=== PATIENT | male | born 1940 | race Caucasian/White ===

== ENCOUNTER 2022-11-07 07:49 | Inpatient (IN) | payer MEDICARE, OTHER ==
[~2022-11-07] VITALS: Ht 182.9 cm; Wt 100.9 kg
[~2022-11-07 07:49] MED LIST: AZELASTINE137 MCG/01; Amiodarone HCl200 MG PO; B-121000 MC7 PO; CARV25 PO; DICLOFENAC SOD100 GM TOP; ELIQUIS5 M2 PO; FENO160 PO; FURO40 PO; INSULANI SC; IPRATROPIUM BRO30 ML; JARDIANCE10 MG PO; LACT10SY PO; LEVSOD75 PO; Lisinopril2.5 MG PO; METF500C PO; METO50ER PO; MULVITA PO; ONDA4 PO; OXYC5 PO; PANT40 PO; SPIR25 PO
[2022-11-07 10:58] LABS: BASOPHILS ABSOLUTE AUTO 0.02 K/mm3 (0.00-0.23); BASOPHILS PERCENT AUTO 0 % (0-2); EOSINOPHILS PERCENT AUTO 1 % (0-6); Hematocrit 42.1 % (37.0-53.0); Hemoglobin 14.5 g/dL (13.5-17.5); IMMATURE GRAN ABSOLUTE AUTO 0.03 K/mm3 (0.00-0.10); IMMATURE GRAN PERCENT AUTO 0 % (0-1); LYMPHOCYTES ABSOLUTE AUTO 1.51 K/mm3 (0.84-5.20); LYMPHOCYTES PERCENT AUTO 20 % (21-46); MONOCYTES ABSOLUTE AUTO 0.87 K/mm3 (0.16-1.47); MONOCYTES PERCENT AUTO 12 % (4-13); Mean Corpuscular HGB 31.6 pg (26.0-34.0); Mean Corpuscular HGB Conc 34.4 g/dL (31.5-36.5); Mean Corpuscular Volume 92 fL (80-100); Mean Platelet Volume 10.1 fL (9.1-12.4); NEUTROPHILS ABSOLUTE AUTO 4.89 K/mm3 (1.96-9.15); NEUTROPHILS PERCENT AUTO 66 % (41-73); Platelet Count 259 K/mm3 (150-400); RDW Coefficient Variation 14.6 % (11.7-14.2); RDW Standard Deviation 49.2 fL (35.1-46.3); Red Blood Cell Count 4.59 M/mm3 (4.30-5.90); White Blood Cell Count 7.42 K/mm3 (4.00-11.30)
--- NOTE | 2022-11-07 11:24 | NUR ---
PT ADMITTED TO ICU AT 0915, DIRECT ADMIT FROM [facility]. 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 PT ARRIVED AWAKE AND ALERT WITH INITIAL C/O CHEST PRESSURE, MID STERNAL 4-6/10, CONSTANT, DOES NOT RADIATE. PT LATER C/O PAIN TO CHEST W PRESSURE (SHARP) 4-6/10. DR GONZALEZ AT BEDSIDE SHORTLY AFTER ADMISSION. MS ORDERED AND GIVEN WITH SOME RELIEF. EKG COMPLETED. ICD/PACER INTERROGATED, REPORT ON CHART. PT ARRIVED WITH AMIO GT [place] 1MG[place] [id number] PER [facility] RECORDS. GTT TO BE DECREASED AFTER 6HRS TO 0.5MG/HR. DR GONZALEZ SPOKE WITH DR KINGSLEY/CARDIOLOGY. PER DR CARLOS KINGSLEY PLANS TO SEE PT TOMORROW AM; WILL CALL CARDIOLOGY WITH UPDATE. PT GOES FREQUENTLY GOES INTO VT BRIEFLY AND THEN IS PACED OUT. PT FEELS IT COMING ON AND STATES IT CAUSES "DISCOMFORT". BP HAS REMAINED STABLE AND PT HAS NOT LOST CONSCIOUSNESS. DR VILLAR. ADDITIONAL PAIN MEDS AND ATIVAN ORDERED. POWERGLIDE PLACED TO NESTOR BY FORM BLOCK MAKER, LABS SENT.
[2022-11-07 11:45] LABS: Bun/Creatinine Ratio 17.4 (12.0-20.0); Calcium, Blood 9.4 mg/dL (8.5-10.1); Creatinine, Blood 0.98 mg/dL (0.60-1.20); Magnesium, Blood 2.4 mg/dL (1.6-2.4); Potassium, Blood 3.7 mmol/L (3.5-5.5); Thyroid Stimulating Hormone 0.696 uIU/mL (0.360-4.800)
--- NOTE | 2022-11-07 14:45 | NUR ---
DR GONZALEZ CALLED AND GIVEN UPDATE, INCLUDING TROPONIN VALUES. DR TEETEE Lanier CARDIOLOGY CALLED WELL AND GIVEN FULL UPDATE. AMIODARONE GTT TO BE CONT UNTIL TOMORROW PER DR KINGSLEY.
--- NOTE | 2022-11-07 21:45 | NUR ---
ASSUMPTION OF CARE/ASSESSMENT: ASSUMED CARE OF PT AT 1900. PT IS IN BED AND A&O X 4; PT PLEASANT AND COOPERATIVE WITH CARE. PT CURRENTLY WITH NC @ 2LPM WITH SPO2 97< AND RR 16-18. PT HAS SOME C/O SOB, LUNG SOUNDS ARE CLEAR WITH DIM BASES. PT HAS AICD PACEMAKER AND IS 100% ATRIAL PACED ON MONITOR WITH RATE OF 60; SBP 110'S, PT HAS C/O OF CHEST PAIN 6/10 R/T POST DEFIBRILATION IN THE ER. PT HAS BEEN BELTCHING THROUGHOUT THE SHIFT AND STATES THAT HE HAS ACID REFLUX AND DOES EXPERIENCE HEART BURN OCCASIONALLY. PT HAS ROUND ABD THAT IS TENDER ABOVE UMBILICUS R/T HERNIA. PT HAS HYPOACTIVE BOWEL SOUNDS IN ALL QUADRANTS; GOOD PO INTAKE. PT USING URINAL WITH ASSISTANCE TO VOID AND HAS NOT HAD A BOWEL MOVEMENT SINCE ADMISSION. PPP X 4, SKIN INTACT. PT USING CALL LIGHT APPROPRIATELY, BED LOWERED, WILL CONTINUE TO MONITOR.
[2022-11-08 05:00] LABS: Cholesterol 154 mg/dL (50-200); Triglycerides 127 mg/dL (30-160)
--- NOTE | 2022-11-08 05:23 | NUR ---
SHIFT SUMMARY: NO ACUTE CHANGES OVER NIGHT. PT REMAINS ON AMIO GTT @ 0.5 MG/HR. PT HAS BEEN SLEEPING FOR MOST OF THE NIGHT. PT VOIDED ONCE WITH URINAL WITH 575 OUTPUT THIS SHIFT. PT SHIFTS HIPS INDEPENDENTY. VSS THROUGHOUT THE SHIFT; PT REMAINED IN ATRIAL PACED WITH RATE IN THE 60'S. PT REMAINS ON NC @ 2LPM. CALL LIGHT IN REACH, WILL CONTINUE TO MONITOR UNTIL ONCOMING RN ARRIVES.
--- NOTE | 2022-11-08 07:58 | NUR ---
CARE OF PT ASSUMED AT 0700. PT AWAKE AND ALERT. DENIES CHEST PAIN AT THIS TIME, C/O BACK PAIN. PT REPOSITIONED. DR GONZALEZ IN THIS AM TO SEE PT. PT REMAINS ON AMIO GTT AT 0.5MG/MIN. AWAITING CARDIOLOGY CONSULT. PT HAS HAD NO VT EVENTS LAST NIGHT. WILL GET PT OOB TO CHAIR TODAY IF OKAY WITH CARDIOLOGY.
--- NOTE | 2022-11-08 08:17 | NUR ---
AFTER EATING PT C/O FEELING DIZZY WITH MID EPIGASTRIC(AREA) PAIN 6/10 W HEADACHE. PT CONTINUES TO PACED AT 60, BP STABLE. PT C/O A LITTLE NAUSEA. AMIO GTT TO BE DC'D PER DR KINGSLEY AND TRABNSITIONED TO ORAL AMIO.
--- NOTE | 2022-11-08 08:26 | NUR ---
DR GONZALEZ CALLED REGARDING PT'S SYMPTOMS POST EATING; GI COCKTAIL ORDERED.
[2022-11-08 08:51] LABS: Bun/Creatinine Ratio 16.5 (12.0-20.0); Calcium, Blood 9.8 mg/dL (8.5-10.1); Creatinine, Blood 0.97 mg/dL (0.60-1.20); Magnesium, Blood 2.3 mg/dL (1.6-2.4)
--- NOTE | 2022-11-08 10:28 | NUR ---
DR KINGSLEY IN TO SEE PT. OKAY TO TRANSFER TO PCU IF OKAY W DR GENA JIMENEZ. KPAD ORDERED FOR CHRONIC LOWER BACK PAIN; PT USES HEATING PAD AT HOME AND STATES IT HELPS. PT OOB TO CHAIR; OKAY TO MOBILIZE PER DR CONWAY. PT'S SENDING PT'S UPDATED MED LIST.
--- NOTE | 2022-11-08 10:56 | NUR ---
REPORT GIVEN TO WAREHOUSE ORDER SELECTOR. PT TRANSFERED OVER VIA WHEELCHAIR IN STABLE CONDITION.
[2022-11-08] MEDS ORDERED: BACLOFEN5 M1 PO (11:04)
[2022-11-08] MEDS ORDERED: ATOR40TA PO (11:05)
[2022-11-08] MEDS ORDERED: CODACE30 PO (11:06)
[2022-11-08] MEDS ORDERED: MAGNESIUM OXID500 MG (11:07)
--- NOTE | 2022-11-08 12:06 | NUR ---
TRANSFER TO PCU AT 1056. PATIENT ABLE TO STAND AND USE WALKER WITH SBA TO TRANSFER. ALERT AND ORIENTED X4. DENIES N/T. OVERALL WEAK BUT EQUAL INSURANCE SALES SUPERVISOR STRENGTH AND EXTREMITY MOVEMENTS. ON ROOM AIR SATING MID 90'S. LUNGS SOUNDING CLEAR AND DIM IN BASES. TELE SHOWING A PACED WITH HR AT 60. DENIES CHEST PAIN/PRESSURE. COMPLAINS OF SOME EPIGASTRIC PAIN, SIMETHICONE ORDERS IN PLACE. DR. GONZALEZ UPDATED ON MED LIST AND HOME MEDICATIONS ORDERED. UPDATED BY RADIOLOGY ASST RAMON PRIOR TO TRANSFER. CALL LIGHT IN REACH. USING URINAL TO VOID. DENIES ABDOMINAL PAIN/NAUSEA. EATING WNL.
--- NOTE | 2022-11-08 15:29 | NUR ---
PATIENT CALLED AND STATED HE FELT "A ACHE IN MY CHEST". POINTING TO HIS BELLY. WITHIN 2 MIN, ACHE RELIEVED AND PATIENT STATES "I THINK IT IS GAS". VITAL SIGNS REMAIN STABLE. WATCHING SUPERBOWL AND DENIES NEEDS. WILL CONTINUE TO MONITOR.
--- NOTE | 2022-11-08 17:32 | NUR ---
NO ACUTE CHANGES. PATIENT REMAINS ALERT AND ORIENTED. VITAL SIGNS STABLE. PLAN FOR STRESS TEST IN AM. NPO 4 HOURS PRIOR TO STRESS TEST, NO CAFFEINE 12 HOURS PRIOR AND EKG IN AM. REMAINS ON ROOM AIR. USING URINAL TO VOID. EATING DINNER AT THIS TIME. DENIES NEEDS. WILL CONTINUE TO MONITOR.
--- NOTE | 2022-11-08 23:22 | NUR ---
ASSUMPTION OF CARE THIS RN ASSSUMED CARE OF PT AT 1900. REPORT FROM GRISEL NICOLE. PT UP IN BED, WATCHING TV. PT COMPLAINING OF "GAS PAIN". PT APPEARS VERY ANXIOUS ABOUT PAIN AND ABOUT SITUATION WITH DEFIBRILLATOR AND EPISODES OF VTACH. THIS RN OFFERED THERAPUETIC CONVERSATION AND EXPLAINATIONS, ANSWERING PT QUESTIONS. PT REQUEST LAXATIVES AND ENEMA FOR GAS PAIN AND CONSITPATION. THIS RN NOTIFIED HOSPITALIST; ORDERS IN. PT WANTS TO HOLD ON THESE FOR NOW AND USE A LAST RESORT. PT IS PASSING GAS PER PT. VSS. PT A&0, PLEASANT AND COOPERATIVE. DENIES CP, PRESSURE OR SOB. PT MEDICATED PER EMAR FOR PAIN. CBG 127. PT UP TO BATHROOM SBA W/FWW; TOLERATED WELL. PT VOIDING FINE. NO CONCERNS PER PT. CALL LIGHT IN REACH AND BED IN LOWEST POSITION.
--- NOTE | 2022-11-08 23:27 | NUR ---
TRANSFER OF CARE; RN TO GRISEL AREVALO RN WILL ASSUME CARE OF PT AT 2320. THIS RN GAVE REPORT AND INFORMED PT OF CHANGE IN NURSES. PT STABLE AND EXPRESSES NO CONCERNS OR NEEDS AT THIS TIME
--- NOTE | 2022-11-09 05:08 | NUR ---
DRIVE AWAY DRIVER SUMMARY PT ALERT AND ORIENTED T/O SHIFT. VSS, ATRIAL PACED RHYTHM 60-65. PT WAS C/O "SHOCK PAIN" ON CHEST WHICH HE DESCRIBED "CONSTANT LITTLE JOLTS, I FEEL LIKE I'M ABOUT TO BE SHOCKED". PT WAS EDUCATED ON MECHANISM OF IMPLANTED PACEMAKER. HOSPITALIST WAS NOTIFIED. PT MEDICATED FOR PAIN, SEE MAR. RELATED TO THIS RN THAT PO PAIN MEDICATION IMPROVED PAIN. NO OTHER COMPLAINTS OR NOTABLE DISTRESS OR CHANGES THROUGHOUT SHIFT. 12 LEAD EKG OBTAINED AT 0500 TODAY PER ORDERS WHICH SHOWED ATRIAL PACED RHYTHM AT 60. PLACED IN CHART. TM
--- NOTE | 2022-11-09 17:14 | NUR ---
SHIFT SUMMARY NO ACUTE CHANGES THIS SHIFT. PT A&OX4, SP02>90% ON RA. DENIES SOB. TELEMETRY SHOWS A PACED, HR 60'S. WILL GO TO 70'S-100'S W/ AMBULATION. PT C/O OF INTERMITTENT "SHORT BURSTS" OF CP, COMES AND GOES. INCREASES W/ ANXIETY/WORRYING. A FEW 5 BEAT RUNS OF VTACH PER VACCINE CUSTOMER REPRESENTATIVE WELL ONE BBB FLIP FOR A BRIEF PERIOD, SEE TELE STRIP IN CHART. PT DENIES PAIN. RUQ ABD TENDER. C/O OF CONSTIPATION. FLEET ENEMA, STOOL SOFTNER, MIROLAX, GIVEN PER EMAR. BROWN COW GIVEN W/ NO SUCCESS. UP TO BSC W/ MINIMAL HELP. ENCOURAGED MOVEMENT. PT CONTINUES TO PASS A LOT OF GAS. VOIDED W/ URINAL AT BEDSIDE. PT RECEIVED FIRST PORTION OF STRESS TEST TODAY, AWAITING SECOND PORTION IN MORNING. NO CAFFIENE. CALL LIGHT IN REACH. =
--- NOTE | 2022-11-09 20:20 | NUR ---
ASSUMPTION OF CARE THIS RN ASSUMED CARE OF PT AT 1900. REPORT FROM GRISEL DAVILA. PT APPEARS TO BE RESTING IN BED. THIS RN IN TO CHECK IN ON PT. PT REPORTS NAUSEA SINCE AFTER DINNER. WILL MEDICATE PER EMAR. PT STATES HE HAD A BETTER DAY TODAY. VSS; ALTHOUGH SBP A LITTLE SOFT AT 103. PT DENIES DIZZINESS OR LIGHTHEADNESS. DENIES CP OR PRESSURE, PALPITATIONS. DENIES SOB. PT REPORTS HAVING A BM TODAY WHICH HELPED ALLEVIATE HIS PREVIOUS EPIGASTRIC PAIN AND ABDOMINAL DISCOMFORT. PT OTHERWISE DENIES ANY NEEDS OR CONCERNS AT THIS TIME. CALL LIGHT IN REACH AND BED IN LOWEST POSITION.
--- NOTE | 2022-11-10 05:41 | NUR ---
SHIFT SUMMARY PT REMAINS A&O X4. VSS. NO ACUTE EVENTS OVERNIGHT, NO EVENTS ON TELEMETRY. PT SLEPT WELL THROUGHOUT THE NIGHT. PT C/O OF NAUSEA AT BEGINNING OF SHIFT; MEDICATED PER EMAR. PT REPORTS RELIEF W/MEDICATION. PT SLEPT WELL THROUGHOUT THE SHIFT. CBG STABLE. EKG DONE THIS AM PER ORDERS; PLACED IN CHART. CALL LIGHT IN REACH AND BED IN LOWEST POSITION. WILL UPDATE ONCOMING RN.
--- NOTE | 2022-11-10 18:43 | NUR ---
SHIFT SUMMARY PT A&OX4. SP02>90% ON RA. TELEMETRY SHOWS PACED, HR MOSTLY 60'S. PT C/O OF ONE "ATTACK" TODAY, BRIEF SOB. TELEMETRY SHOWED 4 PVC'S AT THAT TIME, PER CLIENT CARE CONSULTANT. SECOND PORTION OF STRESS TEST DONE THIS AFTERNOON. RESULTS CALLED TO MD KINGSLEY. MD KINGSLEY W/ ORDERS FOR NO CATH TOMORROW, DC LOVENOX AND START ELIQUIS, SEE EMAR. PT EXPRESSED WISHES FOR MD KINGSLEY TO BE "HIS INTERNATIONAL MARKETING MANAGER". USED URINAL TO VOID. NO BM THIS SHIFT BUT ALOT OF GAS/BURPING. DENIED PAIN. CARE MANAGEMENT IN ROOM TO DISCUSS FUTURE DISCHARGE PLAN. RESTING IN ROOM CURRENTLY. CALL LIGHT IN REACH.
--- NOTE | 2022-11-11 05:42 | NUR ---
SHIFT SUMMARY PT IS A&OX4, MOVES IND IN BED, SBA FOR TX, AND CALLS APPROPRIATELY. HE HAS BEEN ASLEEP MOST OF THE SHIFT. ON TELEMETRY HE HAS BEEN PACED IN THE 60'S AND HAS HAD NO CARDIAC EVENTS. PT'S O2 HAS BEEN >95% ON ROOM AIR AND HE DENIES SOB. NEAR THE BEGINING OF THE SHIFT, THE PT WAS HAVING SOME NAUSEA AND WAS MEDICATED PER EMAR. AT THIS TIME THERE ARE NO CHANGES. HIS BED IS IN LOW, CALL LIGHT IS IN REACH, UPPER SIDE RAILS ARE UP, AND I WILL CONTINUE TO MONITOR UNTIL SHIFT REPORT IS GIVEN TO THE ONCOMING SHIFT RN. SEE NOTES FOR ANY UPDATES.
[2022-11-11] MEDS ORDERED: ASPIR 8181 M1 PO (16:51)
--- NOTE | 2022-11-11 17:37 | NUR ---
SHIFT SUMMARY/DISCHARGE NOTE NO ACUTE EVENTS T/O THE SHIFT. PT WAS DIFFICULT TO AROUSE WHEN DR GONZALEZ ROUNDED, HE WAS CONCERNED PT MAY BE HAVING A CVA, STAT HEAD CT WAS NEGATIVE AND IN THE EARLY AFTERNOON PT BECAME MORE AROUSABLE AND BACK TO BEING ALERT AND ORIENTED. PT STATES HE IS READY TO GO HOME TODAY. PT AND HIS MET WITH DR GONZALEZ LATE THIS AFTERNOON TO DISCUSS PLAN OF CARE AND DISCHARGE. [facility] [place] PER PT REQUEST. IV/POWERGLIDE REMOVED PRIOR TO DISCHARGE. ALL DISCHARGE TEACHING REVIEWED WITH PT AND HIS INCLUDING MEDICATION LIST, FOLLOW UP APPOINTMENTS AND EDUCATION. PT AND STATE THEY HAVE NO QUESTIONS OR CONCERNS AT THIS TIME. PT ABLE TO STAND AND AMBULATE TO WHEELCHAIR, PT DISCHARGED HOME WITH ALL HIS BELONGINGS. NO FURTHER DISCHARGE NEEDS IDENTIFIED.
== END 2022-11-11 17:29 | disposition home or self-care (01) | DRG 308 ==
LOC: ICUW 07:49 → ICUE 09:15 → PCU 11-08 11:07
PROVIDERS: Student in an Organized Health Care Education/Training Program; ADMIT Internal Medicine
DX: I47.20 Ventricular tachycardia, unspecified (principal); I50.23 Acute on chronic systolic (congestive) heart failure; I11.0 Hypertensive heart disease with heart failure; I48.91 Unspecified atrial fibrillation; E11.9 Type 2 diabetes mellitus without complications; R77.8 Other specified abnormalities of plasma proteins; E78.5 Hyperlipidemia, unspecified; J44.9 Chronic obstructive pulmonary disease, unspecified; F11.10 Opioid abuse, uncomplicated; E03.9 Hypothyroidism, unspecified; I25.10 Atherosclerotic heart disease of native coronary artery without angina pectoris; I25.9 Chronic ischemic heart disease, unspecified; Z79.01 Long term (current) use of anticoagulants; Z95.5 Presence of coronary angioplasty implant and graft; Z95.810 Presence of automatic (implantable) cardiac defibrillator; Z98.890 Other specified postprocedural states; Z88.8 Allergy status to other drugs, medicaments and biological substances; Z88.0 Allergy status to penicillin; Z79.899 Other long term (current) drug therapy; Z79.02 Long term (current) use of antithrombotics/antiplatelets; Z79.4 Long term (current) use of insulin; Z79.811 Long term (current) use of aromatase inhibitors; Z79.891 Long term (current) use of opiate analgesic
CPT/HCPCS: 70450; 78452; 80048; 82465; 82947; 83036; 83735; 84443; 84478; 84484; 85025; 93005; 93010; 93017; 93308; 93321; 94762; A9270; A9500; C1751; J0280; J0282; J0706; J1650; J1815; J2060; J2270; J2550; J2785; J7060